=== PATIENT | female | born 2000 | race Caucasian/White ===

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

== ENCOUNTER 2020-11-06 21:14 | Emergency (ER) | payer BC, MEDICAID ==
[2020-11-06 21:27] VITALS: BP 139/89; PULSE 89
--- NOTE | 2020-11-06 21:29 | EDM.PDOC ---
ED HPI GENERAL MEDICAL PROBLEM - General Chief Complaint: Back Pain or Injury Stated Complaint: ABD PAIN, BACK PAIN Time Seen by Provider: 11/06/20 21:23 Source of Information: Reports: Patient History Limitations: Reports: No Limitations - History of Present Illness INITIAL COMMENTS - FREE TEXT/NARRATIVE: Bridgett is a 20-year-old female presenting to the ED for evaluation of bilateral upper flank pain radiating across the epigastric area of the abdomen. She denies any injury. Patient symptoms started on Monday and today have become intolerable. She denies any burning with urination but has had increased frequency and urgency. She has painful respirations due to the low chest/flank pain. He denies any fever, chills, nausea or vomiting, diarrhea or constipation. Denies any cough or shortness of breath. Bilateral Back Pain Score (Numeric/FACES): 10 - Related Data Allergies Allergy/AdvReac Type Severity Reaction Status Date / Time No Known Allergies Allergy Verified 04/04/17 20:55 Home Meds: Home Meds Lisdexamfetamine [Vyvanse] 60 mg PO DAILY 11/06/20 [History] Pnv No.95/Ferrous Fum/Folic AC [ Caplet] 1 tab PO DAILY 11/06/20 [History] metFORMIN [Glucophage] 1 tab PO BID 11/06/20 [History] Past Medical History Psychiatric History: Reports: ADHD ED ROS GENERAL - Review of Systems Review Of Systems: See Below Constitutional: Reports: No Symptoms HEENT: Reports: No Symptoms Respiratory: Reports: Pleuritic Chest Pain Cardiovascular: Reports: No Symptoms Endocrine: Reports: No Symptoms GI/Abdominal: Reports: Abdominal Pain (Epigastric) : Reports: Flank Pain (Bilateral), Frequency, Urgency Musculoskeletal: Reports: No Symptoms Skin: Reports: No Symptoms Neurological: Reports: No Symptoms Psychiatric: Reports: No Symptoms Hematologic/Lymphatic: Reports: No Symptoms Immunologic: Reports: No Symptoms ED EXAM, GENERAL - Physical Exam Exam: See Below Exam Limited By: No Limitations General Appearance: Alert, Moderate Distress Eye Exam: Bilateral Eye: EOMI, PERRL Throat/Mouth: Normal Inspection, Normal Lips, Normal Oropharynx, Normal Voice, No Airway Compromise, Other (Enlarged tonsils without erythema or exudates) Head: Atraumatic, Normocephalic Neck: Normal Inspection, Supple, Non-Tender, Full Range of Motion. No: Lymphadenopathy (R), Lymphadenopathy (L) Respiratory/Chest: No Respiratory Distress, Lungs Clear, Normal Breath Sounds, Splinting, Other (Tachypnea) Cardiovascular: Normal Peripheral Pulses, Regular Rate, Rhythm, No Murmur GI/Abdominal: Normal Bowel Sounds, Soft, No Distention, Tender (Tenderness in the right and left upper quadrant). No: Guarding, Rigid, Rebound Back Exam: Normal Inspection, Full Range of Motion, CVA Tenderness (R), CVA Tenderness (L). No: Decreased Range of Motion, Muscle Spasm, Paraspinal Tenderness, Vertebral Tenderness Extremities: Normal Inspection, Normal Range of Motion Neurological: Alert, Oriented, Normal Cognition, No Motor/Sensory Deficits Psychiatric: Normal Affect Skin Exam: Warm, Dry Lymphatic: No Adenopathy Course - Vital Signs Last Recorded V/S: Last Vital Signs Temp 36.9 C 11/06/20 21:26 Pulse 89 11/06/20 21:26 Resp 20 11/06/20 21:26 BP 139/89 11/06/20 21:26 Pulse Ox 99 11/06/20 21:26 - Orders/Labs/Meds Orders: Active Orders 24 hr Category Date Time Status Sodium Chloride 0.9% [Saline Flush] Med 11/06/20 21:31 Active 10 ml FLUSH ASDIRECTED PRN Saline Lock Insert [OM.PC] Routine Oth 11/06/20 21:31 Ordered Medication Orders Sodium Chloride (Sodium Chloride 0.9% 10 Ml Syringe) 10 ml FLUSH ASDIRECTED PRN PRN Reason: Keep Vein Open Last Admin: 11/06/20 21:44 Dose: 10 ml Documented by: MARTI Labs: Laboratory Tests 11/06/20 11/06/20 11/06/20 Range/Units 21:42 21:42 22:08 WBC 9.5 (4.5-11.0) K/uL RBC 4.87 (3.30-5.50) M/uL Hgb 13.5 (12.0-15.0) g/dL Hct 41.3 (36.0-48.0) % MCV 85 (80-98) fL MCH 28 (27-31) pg MCHC 33 (32-36) % Plt Count 322 (150-400) K/uL Neut % (Auto) 65 (36-66) % Lymph % (Auto) 25 (24-44) % [place]undy % (Auto) 9 H (2-6) % Eos % (Auto) 2 (2-4) % Baso % (Auto) 0 (0-1) % Sodium 140 (140-148) mmol/L Potassium 3.4 L (3.6-5.2) mmol/L Chloride 103 (100-108) mmol/L Carbon Dioxide 26 (21-32) mmol/L Anion Gap 14.4 H (5.0-14.0) mmol/L BUN 8 (7-18) mg/dL Creatinine 0.7 (0.6-1.0) mg/dL Est Cr Clr Drug Dosing 133.98 mL/min Estimated GFR (MDRD) > 60 (>60) Glucose 100 (74-106) mg/dL Calcium 9.0 (8.5-10.1) mg/dL Total Bilirubin 0.3 (0.2-1.0) mg/dL AST 24 (15-37) U/L ALT 43 (12-78) U/L Alkaline Phosphatase 99 (46-116) U/L C-Reactive Protein (0.0-0.3) mg/dL Total Protein 7.8 (6.4-8.2) g/dL Albumin 4.1 (3.4-5.0) g/dL Globulin 3.7 H (2.3-3.5) g/dL Albumin/Globulin Ratio 1.1 L (1.2-2.2) Urine Color Yellow (YELLOW) Urine Appearance Clear (CLEAR) Urine pH 7.0 (5.0-8.0) Ur Specific [place] 1.015 (1.008-1.030) Urine Protein Negative (NEGATIVE) mg/dL Urine Glucose (UA) Negative (NEGATIVE) mg/dL Urine Ketones Negative (NEGATIVE) mg/dL Urine Occult Blood Trace-lysed H (NEGATIVE) Urine Nitrite Negative (NEGATIVE) Urine Bilirubin Negative (NEGATIVE) Urine Urobilinogen 0.2 (0.2-1.0) EU/dL Ur Leukocyte Esterase Negative (NEGATIVE) Urine RBC Not seen (0-5) Urine WBC Not seen (0-5) Ur Epithelial Cells Not seen Amorphous Sediment Rare Urine Bacteria Not seen Urine Mucus Not seen 11/06/20 Range/Units 23:04 WBC (4.5-11.0) K/uL RBC (3.30-5.50) M/uL Hgb (12.0-15.0) g/dL Hct (36.0-48.0) % MCV (80-98) fL MCH (27-31) pg MCHC (32-36) % Plt Count (150-400) K/uL Neut % (Auto) (36-66) % Lymph % (Auto) (24-44) % Dundy % (Auto) (2-6) % Eos % (Auto) (2-4) % Baso % (Auto) (0-1) % Sodium (140-148) mmol/L Potassium (3.6-5.2) mmol/L Chloride (100-108) mmol/L Carbon Dioxide (21-32) mmol/L Anion Gap (5.0-14.0) mmol/L BUN (7-18) mg/dL Creatinine (0.6-1.0) mg/dL Est Cr Clr Drug Dosing mL/min Estimated GFR (MDRD) (>60) Glucose (74-106) mg/dL Calcium (8.5-10.1) mg/dL Total Bilirubin (0.2-1.0) mg/dL AST (15-37) U/L ALT (12-78) U/L Alkaline Phosphatase (46-116) U/L C-Reactive Protein 0.32 H (0.0-0.3) mg/dL Total Protein (6.4-8.2) g/dL Albumin (3.4-5.0) g/dL Globulin (2.3-3.5) g/dL Albumin/Globulin Ratio (1.2-2.2) Urine Color (YELLOW) Urine Appearance (CLEAR) Urine pH (5.0-8.0) Ur Specific [place] (1.008-1.030) Urine Protein (NEGATIVE) mg/dL Urine Glucose (UA) (NEGATIVE) mg/dL Urine Ketones (NEGATIVE) mg/dL Urine Occult Blood (NEGATIVE) Urine Nitrite (NEGATIVE) Urine Bilirubin (NEGATIVE) Urine Urobilinogen (0.2-1.0) EU/dL Ur Leukocyte Esterase (NEGATIVE) Urine RBC (0-5) Urine WBC (0-5) Ur Epithelial Cells Amorphous Sediment Urine Bacteria Urine Mucus Meds: Medications Generic Name Dose Route Start Last Admin Trade Name Freq PRN Reason Stop Dose Admin Sodium Chloride 10 ml 11/06/20 21:31 11/06/20 21:44 Sodium Chloride 0.9% 10 Ml Syringe FLUSH 10 ml ASDIRECTED PRN Administration Keep Vein Open Discontinued Medications Generic Name Dose Route Start Last Admin Trade Name Christian PRN Reason Stop Dose Admin Sodium Chloride 1,000 mls @ 999 mls/hr 11/06/20 21:32 11/06/20 21:45 Normal Saline IV 11/06/20 22:32 999 mls/hr .BOLUS ONE Administration Ketorolac Tromethamine 30 mg 11/06/20 21:31 11/06/20 21:45 Ketorolac 30 Mg/Ml Sdv IVPUSH 11/06/20 21:32 30 mg ONETIME ONE Administration - Radiology Interpretation Free Text/Narrative:: I reviewed the findings from the CT of the abdomen and pelvis without contrast. There is no significant findings to account for the patient's pain. Eventually the CT of the abdomen and pelvis is normal. - Re-Assessments/Exams Free Text/Narrative Re-Assessment/Exam: 11/06/20 23:02 reviewed the patient's labs including a CBC, comprehensive metabolic panel, and urinalysis. All of which are unremarkable for any significant findings. We proceeded with a CT of the abdomen and pelvis without contrast to evaluate for possible ureterolithiasis. There is no evidence of nephrolithiasis or ureterolithiasis. There is no hydronephrosis. There is no perinephric stranding to suggest pyelonephritis. The gallbladder is contracted but otherwise is unremarkable. No appendix is visualized and is negative. Patient does have a fair amount of colonic stool and flatus without evidence for obstruction. There is a tampon identified in the vagina. I do not see any significant cause for the degree of pain that the patient is experiencing. It is possible that this is pleuritic in nature which should resolve with the use of modest doses of NSAIDs. I will add a C-reactive protein to her labs. 11/06/20 23:22 reactive protein is modestly elevated at 0.32. This would be consistent with acute pleurodynia or pleurisy. We will put the patient on a 5- day course of prednisone 40 mg daily. She may continue to take Aleve or ibu profen for pain control. I did discuss with her that it may take a few days to see a noticeable difference. This is mediated by a viral infection and therefore will take time to resolve. All questions from the patient were answered and she was suitable for discharge in satisfactory condition. Departure - Departure Time of Disposition: 23:38 Disposition: Home, Self-Care 01 Clinical Impression: Pleurodynia, viral, Pleurisy without effusion - Discharge Information *PRESCRIPTION DRUG MONITORING PROGRAM REVIEWED*: Not Applicable *COPY OF PRESCRIPTION DRUG MONITORING REPORT IN PATIENT JIMBO: Not Applicable Instructions: Pleurisy, [id number] Referrals: Gabriella Nolasco MD [Primary Care Provider] - Forms: ED Department Discharge Care Plan Goals: We will start you on prednisone 40 mg daily for 5 days. This should help calm down the inflammation of the lining of the lung. You may continue to take ibuprofen or Aleve for pain control. Sepsis Event Note (ED) - Focused Exam Vital Signs: Vital Signs Temp Pulse Resp BP Pulse Ox 11/06/20 21:26 36.9 C 89 20 139/89 99 - My Orders Last 24 Hours: My Active Orders 11/06/20 21:31 Sodium Chloride 0.9% [Saline Flush] 10 ml FLUSH ASDIRECTED PRN Saline Lock Insert [OM.PC] Routine - Assessment/Plan Last 24 Hours: My Active Orders 11/06/20 21:31 Sodium Chloride 0.9% [Saline Flush] 10 ml FLUSH ASDIRECTED PRN Saline Lock Insert [OM.PC] Routine
[2020-11-06] MEDS ORDERED: Ketorolac 30 MG/ML SDV IVPUSH ONE (21:31)
[2020-11-06] MEDS ORDERED: Sodium Chloride 0.9% 10 ML Syringe FLUSH PRN (21:31)
[2020-11-06] MEDS ORDERED: Sodium Chloride 0.9% 1,000 ML IV ONE (21:32)
--- NOTE | 2020-11-06 23:25 | CRLCT ---
INDICATION: Right greater than left flank pain. COMPARISON: COMPARISON DATE TECHNIQUE: CT examination of the abdomen and pelvis was performed without contrast enhancement using 3 mm thick axial sections from the lung bases through the pubic symphysis. Oral contrast was not administered. Please note that all CT scans at this facility use dose modulation, iterative reconstruction, and/or weight-based dosing when appropriate to reduce radiation dose to as low as reasonably achievable. FINDINGS: In the abdomen, the unenhanced liver, spleen, pancreas, and adrenals are normal in appearance. The unenhanced kidneys are normal in appearance. The gallbladder is normal in appearance. The abdominal aorta is normal in caliber with no sign of dilatation. There is no sign of retroperitoneal mass or adenopathy. The stomach, loops of small bowel, and colon in the abdomen are normal in appearance. There is a small fat containing periumbilical hernia. In the pelvis, the retrocecal appendix is normal in appearance with no sign of inflammatory process. The loops of small bowel and colon in the pelvis are normal in appearance. The uterus and adnexal regions are normal in appearance. A tampon is present in the vagina. The urinary bladder is normal in appearance. There is no sign of pelvic or inguinal mass or adenopathy. There is no sign of free air or free fluid in the abdomen or pelvis. The lung bases are clear. The osseous structures are normal in appearance for the patient`s age. IMPRESSION: Nothing seen to explain the patient`s bilateral flank pain. No sign of any abnormality in the urinary system, with no sign of calculus or obstruction. Normal CT of the abdomen without contrast. Normal CT of the pelvis without contrast. Please note that all CT scans at this facility use dose modulation, iterative reconstruction, and/or weight-based dosing when appropriate to reduce radiation dose to as low as reasonably achievable. Dictated by Javier Frye MD @ Nov 06 2020 11:20PM Signed by Dr. Javier Frye @ Nov 06 2020 11:24PM
== END 2020-11-06 23:49 | disposition home or self-care (01) ==
LOC: JP.ED 21:14
DX: R09.1 Pleurisy (principal); B33.0 Epidemic myalgia; Z79.899 Other long term (current) drug therapy; Z79.84 Long term (current) use of oral hypoglycemic drugs
CPT/HCPCS: 36415; 74176; 80053; 81001; 85025; 86140; 96374; 99283; 99284-25; J1885; J7030

== ENCOUNTER 2021-02-21 19:03 | Emergency (ER) | payer BC, MEDICAID ==
[2021-02-21 19:16] VITALS: BP 147/93; PULSE 125
--- NOTE | 2021-02-21 19:40 | EDM.PDOC ---
ED HPI GENERAL MEDICAL PROBLEM - General Chief Complaint: General Stated Complaint: SEVERE COLD SYMPTOMS Time Seen by Provider: 02/21/21 19:20 Source of Information: Reports: Patient History Limitations: Reports: No Limitations - History of Present Illness INITIAL COMMENTS - FREE TEXT/NARRATIVE: Bridgett is a 20 year old female with a 2 weeks history of URI symptoms which included nasal congestion, ear pressure, headache, sinus pressure and pain with some initial improvement with Tylenol and nasal spray the first week. Bridgett has been to Urgent care twice for symptoms and tested for COVID, negative. Bridgett's symptoms have progressed to fever, increased facial pain/congestion, ear pain right worsen than left and general malaise. Bridgett has been unable to sleep due to nasal congestion. Bridgett is and unable to take a number of additional OTC medications per OB provider and Urgent care. Bridgett symptom progressed over the last 48 hours. Generalized Pain Score (Numeric/FACES): 10 - Related Data Allergies Allergy/AdvReac Type Severity Reaction Status Date / Time No Known Allergies Allergy Verified 04/04/17 20:55 Home Meds: Home Meds Lisdexamfetamine [Vyvanse] 60 mg PO DAILY 11/06/20 [History] Pnv No.95/Ferrous Fum/Folic AC [ Caplet] 1 tab PO DAILY 11/06/20 [History] metFORMIN [Glucophage] 1 tab PO BID 11/06/20 [History] Amoxicillin/Potassium Clav [Augmentin 875-125 Tablet] 1 each PO BID 10 Days #20 tablet 02/21/21 [Rx] Past Medical History HEENT History: Reports: Otitis Media [employer]ER History: Reports: Endometriosis, Neurological History: Reports: Concussion Psychiatric History: Reports: ADHD - Past Surgical History Female Surgical History: Reports: Other (See Below) Other Female Surgeries/Procedures: surgery for endometriosis Social & Family History - Tobacco Use Tobacco Use Status *Q: Never Tobacco User - Caffeine Use Caffeine Use: Reports: None Other Caffeine Use: "bubblers" - Recreational Drug Use Recreational Drug Use: No ED ROS GENERAL - Review of Systems Review Of Systems: Comprehensive ROS is negative, except as noted in HPI. ED EXAM, GENERAL - Physical Exam Exam: See Below Exam Limited By: No Limitations General Appearance: Alert, WD/WN, Mild Distress Eye Exam: Bilateral Eye: Normal Inspection Ears: Hearing Grossly Normal Ear Exam: Right Ear: Erythema, TM Dull, TM Red, Left Ear: Swelling (cerumen), Bilateral Ear: Auricle Normal Nose: Normal Inspection, Other (bilateral maxially sinus tenderness/pain) Neck: Normal Inspection, Supple, Non-Tender, Lymphadenopathy (R), Lymphadenopathy (L) Respiratory/Chest: No Respiratory Distress, Lungs Clear Cardiovascular: Normal Peripheral Pulses Extremities: Normal Inspection, Normal Range of Motion Neurological: Alert, Oriented, CN II-XII Intact, Normal Cognition Psychiatric: Normal Affect, Normal Mood Skin Exam: Warm, Dry, Intact Course - Vital Signs Last Recorded V/S: Last Vital Signs Temp 38.6 C H 02/21/21 19:14 Pulse 125 H 02/21/21 19:14 Resp 16 02/21/21 19:14 BP 147/93 H 02/21/21 19:14 Pulse Ox 98 02/21/21 19:14 Departure - Departure Time of Disposition: 19:35 Disposition: Home, Self-Care 01 Clinical Impression: Sinusitis - Discharge Information Prescriptions: Amoxicillin/Potassium Clav [Augmentin 875-125 Tablet] 1 each PO BID 10 Days #20 tablet Instructions: Sinusitis, Adult, How to Perform a Sinus Rinse, [id number], Mometasone nasal spray, Oxymetazoline nasal spray Referrals: Gabriella Nolasco MD [Primary Care Provider] - Additional Instructions: 1. Nasal saline irritation (Neti pot) distilled water with saline packet every am and pm to help with nasal congestions. 2. Flonase nasal spray 2 spray each nostril every am and pm x 3 days then one spray each nostril daily until symptoms resolved. 3. Afrin nasal spray 2 spray each nostril every am and pm x THREE days only (off x 3-5 days then may repeat). 4. Augmentin 875mg every am and pm with food for sinusitis with fever and facial pain. 5. Tylenol 500-1000mg every 6 hrs for headache, fever and pain. Max of 4,000mg per 24hours. 6. Increase fluid intake to maintain hydration. 7. Nasal strips may help with nose breathing while trying to sleep. 8. May consider benadryl 25-50mg at night if difficulty sleeping. Sepsis Event Note (ED) - Evaluation Sepsis Screening Result: No Definite Risk - Focused Exam Vital Signs: Vital Signs Temp Pulse Resp BP Pulse Ox 02/21/21 19:14 38.6 C H 125 H 16 147/93 H 98
== END 2021-02-21 19:54 | disposition home or self-care (01) ==
LOC: JP.ED 19:03
DX: J32.9 Chronic sinusitis, unspecified (principal)
CPT/HCPCS: 99283

== ENCOUNTER 2021-06-09 08:16 | Day surgery (SDC) | payer BC, MEDICAID ==
[~2021-06-09 08:16] MED LIST: Dexamethasone 4 MG/ML SDV ONE; Glycopyrrolate 0.2 MG/ML 5 ML MDV ONE; Neostigmine Methylsulfate 1 MG/ML 5 ML Syringe ONE; Ondansetron 4 MG/2 ML SDV ONE; Oxymetazoline 0.05% Nasal Spray 30 ML Bottle ONE; Propofol 200 MG/20 ML SDV ONE; Rocuronium 50 MG/5 ML Vial ONE; fentaNYL 250 MCG/5 ML SDV ONE
[2021-06-09] MEDS ORDERED: fentaNYL 100 MCG/2 ML SDV ONE (10:18)
[2021-06-09] MEDS ORDERED: fentaNYL 100 MCG/2 ML SDV IVPUSH ONE ×2 (11:24→11:59)
[2021-06-09] MEDS ORDERED: hydrOXYzine HCL 100 MG/2 ML SDV IM ONE (11:24)
[2021-06-09] MEDS ORDERED: Ondansetron 4 MG/2 ML SDV IVPUSH PRN (12:51)
[2021-06-09] MEDS ORDERED: Acetaminophen/HYDROcodone 108-2.5 MG/5 ML Soln 15 ML UD Cup PO ONE (13:30)
[2021-06-09] MEDS ORDERED: Ketorolac 30 MG/ML SDV IVPUSH ONE (13:30)
[2021-06-09] MEDS ORDERED: SIMETH PO ONE ×3 (14:30)
[2021-06-09] MEDS ORDERED: LIDOCAINE PO ONE ×3 (14:30)
[2021-06-09] MEDS ORDERED: MAG HYDROX PO ONE ×3 (14:30)
[2021-06-09] MEDS ORDERED: ALUM HYDROX PO ONE ×3 (14:30)
[2021-06-09] MEDS ORDERED: DIPHENHYDRAMINE PO ONE ×3 (14:30)
[2021-06-09 15:03] VITALS: BP 101/51; PULSE 61
--- NOTE | 2021-06-09 18:21 | OR ---
DATE OF PROCEDURE: SURGEON: Edgardo Orr MD PREOPERATIVE DIAGNOSIS: Chronic pharyngitis. POSTOPERATIVE DIAGNOSIS: Chronic pharyngitis. PROCEDURE PERFORMED: Tonsillectomy and adenoidectomy, over 12 years of age. ANESTHESIA: General. ESTIMATED BLOOD LOSS: Minimal. DESCRIPTION OF TECHNIQUE: After satisfactory endotracheal anesthesia, a Shelly-Singh mouth gag placed, soft palate retracted. The patient had moderate residual adenoid tissue removed with multiple passes of the PEAK plasma cutter adenoid curette. Residual bleeders suctioned coagulated. Patient also had a prominent inferior turbinate posterior extension that was partially obstructing choana, reduced with the suction cautery tip with much improved choanal airway bilaterally. Control of the oozing from the adenoid bed required application of Afrin-soaked tonsil balls. The tonsils were removed using the PEAK plasma cutter technique resecting right at the tonsillar fascia with generous plica triangularis removed bilaterally. The right inferior tonsil bed had a prominent oozing that required more aggressive suction cauterization. The patient released from mouth gag to check for occult bleed several times before suctioning the patient clean and extubated and transferred to recovery room in stable condition. DISCHARGE MEDICATION: Consists of Toradol 10 mg 4 times a day regularly for 5 days and Hycet 15 mL every 4 hours p.r.n. for breakthrough pain and Zofran 8 mg for nausea. Edgardo Orr MD /[id number]
== END 2021-06-09 13:15 | disposition home or self-care (01) ==
LOC: JP.SDS 08:16
PROVIDERS: ATTEND Otolaryngology
DX: J35.1 Hypertrophy of tonsils (principal); J31.2 Chronic pharyngitis; E66.3 Overweight; Z98.890 Other specified postprocedural states; Z79.899 Other long term (current) drug therapy; Z87.891 Personal history of nicotine dependence
CPT/HCPCS: 42821; 81025; 88304; A9270; J1100; J1885; J2405; J2704; J2710; J3010; J3410; J3490

== ENCOUNTER 2022-04-17 01:09 | Emergency (ER) | payer BC, MEDICAID ==
[2022-04-17] MEDS ORDERED: Ketorolac 30 MG/ML SDV IM ONE (01:48)
[2022-04-17 05:57] VITALS: BP 118/71; PULSE 56
== END 2022-04-17 05:58 | disposition home or self-care (01) ==
LOC: JP.ED 01:09
DX: M25.552 Pain in left hip (principal); F17.210 Nicotine dependence, cigarettes, uncomplicated; Z91.040 Latex allergy status; Z91.09 Other allergy status, other than to drugs and biological substances
CPT/HCPCS: 73502; 73700; 96372; 99284; J1885

== ENCOUNTER → 2022-05-17 | Day surgery (SDC) | payer BC, MEDICAID ==
[~2022-05-17] MED LIST changes: -Dexamethasone 4 MG/ML SDV ONE; -Glycopyrrolate 0.2 MG/ML 5 ML MDV ONE; +Lactated Ringers 1,000 ML IV SCH; +Midazolam 1 MG/ML 2 ML SDV ONE; -Neostigmine Methylsulfate 1 MG/ML 5 ML Syringe ONE; -Ondansetron 4 MG/2 ML SDV ONE; -Oxymetazoline 0.05% Nasal Spray 30 ML Bottle ONE; -Rocuronium 50 MG/5 ML Vial ONE; +fentaNYL 100 MCG/2 ML SDV ONE; -fentaNYL 250 MCG/5 ML SDV ONE
== END ==
LOC: JP.SDS 06:00
PROVIDERS: ATTEND Family Medicine
DX: K52.9 Noninfective gastroenteritis and colitis, unspecified (principal); K29.50 Unspecified chronic gastritis without bleeding; K31.A0 Gastric intestinal metaplasia, unspecified; K21.9 Gastro-esophageal reflux disease without esophagitis; Z91.040 Latex allergy status; Z98.890 Other specified postprocedural states; Z20.822 Contact with and (suspected) exposure to COVID-19
CPT/HCPCS: 43239; 45380; 81025; 88305; 88342; J2250; J2704; J3010; J7120

== ENCOUNTER 2022-12-16 01:14 | Day surgery (SDC) | payer BC, MEDICAID ==
[2022-12-16] MEDS ORDERED: Ondansetron 4 MG/2 ML SDV IVPUSH ONE ×2 (01:47→06:20)
[2022-12-16] MEDS ORDERED: Sodium Chloride 0.9% 10 ML Syringe FLUSH PRN (01:47)
[2022-12-16] MEDS ORDERED: Ketorolac 30 MG/ML SDV IVPUSH ONE (01:48)
[2022-12-16] MEDS ORDERED: Sodium Chloride 0.9% 1,000 ML IV ONE (01:48)
[2022-12-16 02:02] LABS: BASOPHILS ABSOLUTE AUTO 0.03 K/uL (0.00-0.10); BASOPHILS PERCENT AUTO 0.2 % (0.1-1.3); EOSINOPHILS ABSOLUTE AUTO 0.15 K/uL (0.00-0.40); EOSINOPHILS PERCENT AUTO 1.1 % (0.0-5.4); HEMATOCRIT 38.7 % (34.3-46.0); HEMOGLOBIN 12.9 g/dL (11.2-15.5); IMMATURE GRAN ABSOLUTE AUTO 0.04 K/uL (0.00-0.23); IMMATURE GRAN PERCENT AUTO 0.3 % (0.0-0.7); LYMPHOCYTES ABSOLUTE AUTO 1.83 K/uL (0.8-3.3); LYMPHOCYTES PERCENT AUTO 13.6 % (11.4-47.7); MEAN CORPUSCULAR HEMOGLOBIN 29.6 pg (31.6-35.5); MEAN CORPUSCULAR HGB CONC 33.3 g/dL (31.6-35.5); MEAN CORPUSCULAR VOLUME 88.8 fL (81.4-99.0); MONOCYTES ABSOLUTE AUTO 1.02 K/uL (0.20-0.90); MONOCYTES PERCENT AUTO 7.6 % (3.3-12.6); NEUTROPHILS ABSOLUTE AUTO 10.43 K/uL (1.0-7.6); NEUTROPHILS PERCENT AUTO 77.2 % (40.0-78.1); PLATELET COUNT,PLT 283 K/uL (130-375); RED BLOOD CELL COUNT 4.36 M/uL (3.77-5.24); WHITE BLOOD CELL COUNT,WBC 13.5 K/uL (3.2-11.0)
[2022-12-16] MEDS ORDERED: HYDROmorphone 0.5 MG/0.5 ML Syringe IVPUSH ONE ×5 (02:08→13:00)
[2022-12-16 02:17] LABS: ALANINE AMINOTRANSFERASE,ALT 36 U/L (12-78); ALBUMIN 3.6 g/dL (3.4-5.0); ALKALINE PHOSPHATASE 86 U/L (46-116); ASPARTATE AMNIOTRANSFERASE,AST 31 U/L (15-37); BILIRUBIN TOTAL 0.5 mg/dL (0.2-1.0); BLOOD UREA NITROGEN,BUN 17 mg/dL (7-18); C-REACTIVE PROTEIN 0.29 mg/dL (0.0-0.3); CALCIUM 8.1 mg/dL (8.5-10.1); CARBON DIOXIDE,CO2 27 mmol/L (21-32); CHLORIDE,CL 101 mmol/L (100-108); CREATININE 0.8 mg/dL (0.6-1.0); EST CRCL DRUG DOSING (CG) 115.28 mL/min; ESTIMATED GFR 107 mL/min (>60); GLUCOSE RANDOM 92 mg/dL (74-106); LIPASE 45 U/L (73-393); PROTEIN TOTAL,TP 7.2 g/dL (6.4-8.2); SODIUM,NA 134 mmol/L (140-148)
[2022-12-16] MEDS: Potassium Chloride 20 MEQ in Premix Bag 1 BAG IV SCH ×2 (02:53→05:05)
[2022-12-16 02:56] LABS: APPEARANCE,URINE CLEAR (CLEAR); BILIRUBIN,URINE NEGATIVE (NEGATIVE); COLOR,URINE YELLOW (YELLOW); GLUCOSE,URINE NEGATIVE (NEGATIVE); KETONES,URINE NEGATIVE (NEGATIVE); LEUKOCYTE ESTERASE,URINE NEGATIVE (NEGATIVE); NITRITE,URINE NEGATIVE (NEGATIVE); OCCULT BLOOD,URINE TRACE-INTACT (NEGATIVE); PROTEIN,URINE NEGATIVE (NEGATIVE); UROBILINOGEN,URINE 0.2 EU/dL (0.2-1.0)
[2022-12-16] MEDS ORDERED: Sodium Chloride 0.9% 50 ML IV STA (03:02)
[2022-12-16] MEDS ORDERED: Iopamidol 612 MG/ML 100 ML Bottle IV STA (03:02)
[2022-12-16 03:07] LABS: AMORPHOUS SEDIMENT,URINE NOT SEEN; BACTERIA,URINE FEW; EPITHELIAL CELLS,URINE FEW; MUCUS,URINE NOT SEEN; RBC,URINE 0-5 (0-5); WBC,URINE 0-5 (0-5)
[2022-12-16] MEDS ORDERED: Ertapenem 1 GM in Sodium Chloride 0.9% 50 ML IV ONE (03:42)
[2022-12-16] MEDS ORDERED: Sodium Chloride 0.9% 1,000 ML IV SCH (04:00)
[2022-12-16 06:20] LABS: C-REACTIVE PROTEIN 0.63 mg/dL (0.0-0.3); POTASSIUM,K 3.7 mmol/L (3.6-5.2)
[2022-12-16] MEDS ORDERED: Propofol 200 MG/20 ML SDV ONE (08:07)
[2022-12-16] MEDS ORDERED: Succinylcholine 200 MG/10 ML MDV ONE (08:07)
[2022-12-16] MEDS ORDERED: Ondansetron 4 MG/2 ML SDV ONE (08:07)
[2022-12-16] MEDS ORDERED: Dexamethasone 4 MG/ML SDV ONE (08:07)
[2022-12-16] MEDS ORDERED: Neostigmine Methylsulfate 1 MG/ML 5 ML Syringe ONE (08:07)
[2022-12-16] MEDS ORDERED: Rocuronium 50 MG/5 ML Vial ONE (08:07)
[2022-12-16] MEDS ORDERED: Glycopyrrolate 0.2 MG/ML 5 ML MDV ONE (08:07)
[2022-12-16] MEDS ORDERED: fentaNYL 250 MCG/5 ML SDV ONE (08:09)
[2022-12-16] MEDS ORDERED: Bupivacaine 0.5%/EPINEPHrine 1:200,000 50 ML MDV ONE (08:43)
[2022-12-16] MEDS ORDERED: Lactated Ringers 1,000 ML ONE (10:31)
[2022-12-16] MEDS ORDERED: Ketorolac 30 MG/ML SDV ONE (11:06)
[2022-12-16] MEDS: Acetaminophen/oxyCODONE 325-10 MG Tab PO PRN ×3 (14:13→22:12)
[2022-12-16] MEDS: metFORMIN 500 MG Tab PO SCH (17:15)
[2022-12-16] MEDS: Ondansetron 4 MG/2 ML SDV IVPUSH PRN ×2 (17:20→22:31)
[2022-12-16] MEDS ORDERED: Tamsulosin 0.4 MG Cap.ER PO ONE (21:04)
[2022-12-16] MEDS: Ketorolac 15 MG/ML SDV IVPUSH SCH (21:14)
[2022-12-17] MEDS: Acetaminophen/oxyCODONE 325-10 MG Tab PO PRN ×3 (02:12→10:48)
[2022-12-17 02:33] VITALS: PULSE 65
[2022-12-17] MEDS: Ketorolac 15 MG/ML SDV IVPUSH SCH ×2 (03:39→09:19)
[2022-12-17 04:53] LABS: HEMATOCRIT 34.1 % (34.3-46.0); HEMOGLOBIN 11.1 g/dL (11.2-15.5); MEAN CORPUSCULAR HEMOGLOBIN 29.7 pg (31.6-35.5); MEAN CORPUSCULAR HGB CONC 32.6 g/dL (31.6-35.5); MEAN CORPUSCULAR VOLUME 91.2 fL (81.4-99.0); RED BLOOD CELL COUNT 3.74 M/uL (3.77-5.24); WHITE BLOOD CELL COUNT,WBC 11.3 K/uL (3.2-11.0)
[2022-12-17 05:14] LABS: CALCIUM 8.1 mg/dL (8.5-10.1); CREATININE 0.8 mg/dL (0.6-1.0); EST CRCL DRUG DOSING (CG) 115.28 mL/min; MAGNESIUM 1.9 mg/dL (1.8-2.4); PHOSPHORUS 4.2 mg/dL (2.5-4.9); POTASSIUM,K 3.6 mmol/L (3.6-5.2)
[2022-12-17 05:21] LABS: ANION GAP 9.6 mmol/L (5.0-14.0)
[2022-12-17] MEDS ORDERED: LISDEXAMFETAMINE 60 MG PO SCH (09:00)
[2022-12-17 09:16] VITALS: BP 111/57
[2022-12-17] MEDS: metFORMIN 500 MG Tab PO SCH (09:20)
== END 2022-12-17 12:30 | disposition home or self-care (01) ==
LOC: JP.ED 01:14 → JP.SDS 09:43 → JP.2SS 11:45 → JP.SDS 12-17 12:30
PROVIDERS: ATTEND Student in an Organized Health Care Education/Training Program
DX: K35.30 Acute appendicitis with localized peritonitis, without perforation or gangrene (principal); F90.9 Attention-deficit hyperactivity disorder, unspecified type; D50.9 Iron deficiency anemia, unspecified; Z90.49 Acquired absence of other specified parts of digestive tract; Z87.891 Personal history of nicotine dependence; Z91.048 Other nonmedicinal substance allergy status; Z91.041 Radiographic dye allergy status
CPT/HCPCS: 36415; 44970; 51701; 74177; 80048; 80053; 81001; 81025; 83690; 83735; 84100; 84132; 85025; 85027; 86140; 87635; 88304; 96361; 96365; 96366; 96368; 96375; 96376; 99285; A9270; J0330; J1100; J1170; J1335; J1885; J2405; J2704; J2710; J3010; J3480; J3490; J7030; J7120; Q9967; U0002

== ENCOUNTER 2023-05-23 20:10 | Emergency (ER) | payer BC, MEDICAID ==
[2023-05-23 20:48] VITALS: BP 156/90; PULSE 84
[2023-05-23] MEDS ORDERED: Bacitracin Oint 1 GM U/D Packet TOP ONE (20:49)
== END 2023-05-23 22:10 | disposition home or self-care (01) ==
LOC: JP.ED 20:10
DX: S90.31XA Contusion of right foot, initial encounter (principal); Z91.040 Latex allergy status; Z91.048 Other nonmedicinal substance allergy status; W20.8XXA Other cause of strike by thrown, projected or falling object, initial encounter; Y92.89 Other specified places as the place of occurrence of the external cause; Y99.0 Civilian activity done for income or pay
CPT/HCPCS: 73610-26-RT; 73610-RT; 73630-26-RT; 73630-RT; 99283